=== PATIENT | male | born 2000 | race Caucasian/White ===

== ENCOUNTER 2022-12-15 22:17 | Emergency (ER) | payer OTHER, SELFPAY ==
[2022-12-16] MEDS ORDERED: Ibuprofen 200 MG TAB ONE (00:38)
[2022-12-16] MEDS ORDERED: Amoxicillin/Potassium Clav 875 MG TAB ONE (00:38)
== END 2022-12-16 00:53 | disposition home or self-care (01) ==
LOC: CSHERS 22:17
DX: S91.031A Puncture wound without foreign body, right ankle, initial encounter (principal); J45.909 Unspecified asthma, uncomplicated; W54.0XXA Bitten by dog, initial encounter
CPT/HCPCS: 99283